=== PATIENT | female | born 1955 | race Caucasian/White ===

== ENCOUNTER 2017-11-13 13:12 | Observation (INO) | payer OTHER ==
[2017-11-13 13:37] LABS: #Basophils 0.1 thou/uL (0.0-0.2); #Eosinphils 0.1 thou/uL (0.0-0.7); #Monocytes 0.4 thou/uL (0.11-0.59); #Neutrophils 3.3 thou/uL (1.40-6.50); %Basophils 1.7 % (0.0-1.0); %Eosinophils 1.8 % (0.0-10.0); %Lymphocytes 34.4 % (21.0-51.0); %Monocytes 6.8 % (0.0-10.0); %Neutrophils 55.3 % (42.0-75.0); Hemoglobin 15.5 g/dL (12.0-16.0); Mean Corpuscular HGB CONC 33.3 g/dL (32.0-36.0); Mean Corpuscular Hemoglobin 31.8 pg (27.0-31.0); Mean Corpuscular Volume 95.5 fl (81.0-99.0); Mean Platelet Volume 8.3 fL (7.4-10.4); Platelet Count 191 thou/uL (130-400); RBC Distribution Width 12.3 % (11.5-14.5); Red Blood Cell (RBC) Count 4.87 mill/uL (4.20-5.40); White Blood Cell (WBC) Count 5.9 thou/uL (4.8-10.8)
[2017-11-13 13:45] LABS: PTT 37.3 SEC (22.9-36.1); Prothrombin Time 13.1 SEC (12.0-14.7)
[2017-11-13 13:52] LABS: ALT (SGPT) 14 U/L (8-55); AST (SGOT) 19 U/L (5-34); Albumin 4.2 g/dL (3.4-4.8); Alkaline Phosphatase 69 U/L (40-150); Anion Gap 11 mmol/L (10-20); BUN (Urea Nitrogen) 10 mg/dL (9.8-20.1); Bilirubin, Total 0.4 mg/dL (0.2-1.2); Calc. Creatinine Clearance 0 mL/min (70-130); Calcium 9.4 mg/dL (7.8-10.44); Carbon Dioxide 26 mmol/L (23-31); Chloride 106 mmol/L (98-107); Estimated GFR-MDRD 83; Globulin 3.1 g/dL (2.4-3.5); Glucose 97 mg/dL (80-115); Potassium 3.9 mmol/L (3.5-5.1); Protein, Total 7.3 g/dL (6.0-8.3); Sodium 139 mmol/L (136-145)
[2017-11-13 13:57] LABS: CKMB 0.5 ng/mL (0-6.6); Troponin I Less than 0.010 ng/mL (< 0.028)
--- NOTE | 2017-11-13 14:14 | CT ---
CT BRAIN: HISTORY: Altered mental status. Possible stroke. A 62-year-old female. COMPARISON: 11/13/2003 TECHNIQUE: Noncontrast enhanced CT images of the brain are obtained. FINDINGS: The brain is unremarkable. No evidence of intracranial masses, hemorrhages, strokes, or contusions s een. IMPRESSION: Normal CT brain. POS: BOB
[2017-11-13 14:32] LABS: Acetaminophen Less than 6.0 mcg/mL (10.0-30.0); Alcohol Less than 10 mg/dL (Less than 10); Salicylate Less than 8.0 mg/dL (15.0-30.0)
[2017-11-13 14:52] LABS: Bilirubin Negative (Negative); Blood, Urine Negative (Negative); Clarity CLEAR (Clear); Glucose, Urine (Dipstick) Negative (Negative); Leukocyte Negative (Negative); Nitrite Negative (Negative); Protein, Urine (Dipstick) Negative (Neg-Trace); Specific Gravity, Urine 1.007 (1.002-1.036); Urobilinogen 0.2 mg/dL (0.2-1.0)
[2017-11-13] MEDS ORDERED: Acetaminophen 325 MG TAB ONE (16:52)
[2017-11-13] MEDS ORDERED: Aspirin 325 MG TAB ONE (16:52)
[2017-11-13] MEDS ORDERED: Calcium Carbonate 500 MG ChewTAB PO PRN (18:16)
[2017-11-13] MEDS ORDERED: Ondansetron ODT 4 MG TAB PO PRN (18:16)
[2017-11-13] MEDS ORDERED: Mag-Al 1200 mg/1200 mg/30 ML UDCUP PO PRN (18:16)
[2017-11-13] MEDS ORDERED: Ondansetron HCl/PF 4 MG/2 ML Vial IVP PRN (18:16)
[2017-11-13] MEDS ORDERED: hydrALAZINE 20 MG/ML VIAL SLOW IVP PRN (18:16)
[2017-11-13] MEDS ORDERED: Senokot 8.6 MG TAB PO PRN (18:16)
[2017-11-13 18:31] VITALS: BMI 29.0
[2017-11-13 19:37] LABS: Troponin I Less than 0.010 ng/mL (< 0.028)
[2017-11-13] MEDS ORDERED: Atorvastatin Calcium 10 MG TAB PO SCH (21:00)
[2017-11-13] MEDS: Sodium Chloride 0.9% 1,000 ML IV SCH (21:14)
[2017-11-13] MEDS ORDERED: Lorazepam 0.5 MG TAB PO PRN ×2 (21:44→21:52)
[2017-11-13] MEDS ORDERED: Escitalopram Oxalate 20 mg Tablet PO SCH (21:45)
--- NOTE | 2017-11-13 21:59 | PDOC.PN ---
- Subjective Encounter Start Date: 11/13/17 Encounter Start Time: 21:58 Patient seen and examined. - Objective Resuscitation Status: Resuscitation Status FULL:Full Resuscitation MAR Reviewed: Yes Vital Signs & Weight: Vital Signs (12 hours) Temp Pulse Resp BP Pulse Ox 11/13/17 20:49 98 11/13/17 19:55 98.3 F 74 16 152/75 H 100 11/13/17 18:25 98.4 F 52 L 18 144/77 H 97 Weight Weight 159 lb Result Diagrams: 11/13/17 13:16 11/13/17 13:16 Radiology Reviewed by me: Yes (CT brain - negative) EKG Reviewed by me: Yes (Sinus bradycardia) Phys Exam - Physical Examination Constitutional: NAD HEENT: PERRLA, moist MMs, sclera anicteric Neck: no nodes, no JVD, supple, full ROM Respiratory: no wheezing, no rales, no rhonchi, clear to auscultation bilateral Cardiovascular: RRR, no significant murmur, no rub no heaves/pulsations Gastrointestinal: soft, non-tender, no distention, positive bowel sounds Musculoskeletal: no edema, pulses present Neurological: non-focal, normal sensation, moves all 4 limbs Normal tone, CN 2-12 were normal on exam Psychiatric: normal affect, A&O x 3 Skin: no rash Dx/Plan - Plan DVT proph w/SCDs * Dictated Review of Systems - Review of Systems Constitutional: negative: fever, chills, sweats, weakness, malaise, other Eyes: negative: Pain, Vision Change, Conjunctivae Inflammation, Eyelid Inflammation, Redness, Other ENT: negative: Ear Pain, Ear Discharge, Nose Pain, Nose Discharge, Nose Congestion, Mouth Pain, Mouth Swelling, Throat Pain, Throat Swelling, Other Respiratory: negative: Cough, Dry, Shortness of Breath, Hemoptysis, SOB with Excertion, Pleuritic Pain, Sputum, Wheezing Cardiovascular: negative: chest pain, palpitations, orthopnea, paroxysmal nocturnal dyspnea, edema, light headedness, other Gastrointestinal: negative: Nausea, Vomiting, Abdominal Pain, Diarrhea, Constipation, Melena, Hematochezia, Other Genitourinary: negative: Dysuria, Frequency, Incontinence, Hematuria, Retention , Other Musculoskeletal: negative: Neck Pain, Shoulder Pain, Arm Pain, Back Pain, Hand Pain, Leg Pain, Foot Pain, Other Skin: negative: Rash, Lesions, Jasson, Bruising, Other Neurological: Change in Speech, Confusion. negative: Weakness, Numbness, Incoordination, Seizures, Other - Medications/Allergies Allergies/Adverse Reactions: Allergies Allergy/AdvReac Type Severity Reaction Status Date / Time Pnpzhed-Wvg-Aow Reductase Allergy Verified 11/13/17 21:46 Inhibitor Medications: Current Medications Acetaminophen (Tylenol) 650 mg PO Q4H PRN PRN Reason: Headache/Fever or Pain Al Hydroxide/Mg Hydroxide (Maalox) 30 ml PO Q6H PRN PRN Reason: Heartburn or Indigestion Aspirin (Ecotrin) 325 mg PO DAILY REPLACED BY [facility] Calcium Carbonate (Tums) 1,000 mg PO Q4H PRN PRN Reason: Heartburn or Indigestion Docusate Sodium (Colace) 100 mg PO BID REPLACED BY [facility] Enoxaparin Sodium (Lovenox) 40 mg SC 0900 REPLACED BY [facility] Escitalopram Oxalate (Lexapro) 20 mg PO HS REPLACED BY [facility] Escitalopram Oxalate (Lexapro) 20 mg PO NOW REPLACED BY [facility] Stop: 11/13/17 22:30 Famotidine (Pepcid) 20 mg PO BID REPLACED BY [facility] Hydralazine HCl (Apresoline) 10 mg SLOW IVP Q4H PRN PRN Reason: BP > 220/110 Sodium Chloride (Normal Saline 0.9%) 1,000 mls @ 70 mls/hr IV .[id number] REPLACED BY [facility] Last Admin: 11/13/17 21:14 Dose: 1,000 mls Lorazepam (Ativan) 1 mg PO ASDIR REPLACED BY [facility] Lorazepam (Ativan) 0.5 mg PO Q4H PRN PRN Reason: Anxiety Pantoprazole Sodium (Protonix) 40 mg PO NOW REPLACED BY [facility] Stop: 11/13/17 23:00 Senna (Senokot) 2 tab PO HSPRN PRN PRN Reason: Constipation
[2017-11-13] MEDS ORDERED: Lorazepam 1 MG TAB PO SCH (22:00)
--- NOTE | 2017-11-13 22:09 | HP ---
DATE OF ADMISSION: 11/13/2017 PRIMARY CARE PHYSICIAN: [facility]. The patient sees Dr. Garcia. CHIEF COMPLAINT: Confusion with memory problems, lasting for a total of 2 hours this morning. HISTORY OF PRESENT ILLNESS: The patient is a 62-year-old female with anxiety and hyperlipidemia, who presented to the emergency room with above complaints. History obtained from the patient. No famil y at the bedside. The patient was last seen normal around 10:00 a.m. Between 10-12 a.m., the patient had confusion and memory problems. She was unable to recognize her 's medications. She also did not remember making breakfast for her . Her daughter also noticed that her speech was somewhat slurry per patient report. She also had some headache that was throbbing in nature, 5/10, without any aggravati ng or relieving factor. No photophobia, phonophobia, double vision, blurring of vision, weakness, nu mbness of any of her extremities reported. She denies any chest pain, palpitations, syncope or light headedness. In the emergency room, her initial vital signs showed temperature 98.0, respirations 18, pulse of 59, blood pressure 133/88 with O2 saturation 100% on room air. A CT scan of the brain was negative for infiltrate. Her EKG showed sinus rhythm without significant ST-T wave changes. She received aspirin in the emergency room. PAST MEDICAL HISTORY: 1. Hyperlipidemia. 2. Anxiety. PAST SURGICAL HISTORY: 1. Gastric sleeve. 2. Hysterectomy. 3. Tonsillectomy. ALLERGIES: The patient is allergic to STATINS. SOCIAL HISTORY: The patient currently lives at home with her family. No smoking, alcohol or drug us e. FAMILY HISTORY: Mother with CVA and sarcoidosis. Multiple cancer runs in her family. REVIEW OF SYSTEMS: Please refer to my progress note. PHYSICAL EXAMINATION: Please refer to my progress note. LABORATORY FINDINGS: Please refer to my progress note. IMPRESSION AND PLAN: 1. Confusion with memory problems along with headache lasting for 2 hours. Her symptoms are suspici ous for transient ischemic attack. We will get stroke workup including MRI of the brain and echocard iogram. Vitamin B12 and folic acid will also be checked due to history of gastric sleeve. We will c ontinue aspirin. The patient is claustrophobic and will require Ativan prior to MRI. We will consul t Neurology based on the MRI. 2. Hyperlipidemia. The patient is allergic to STATINS. We will check fasting lipid profile in a.m. 3. Anxiety. We will continue Lexapro. 4. Gastroesophageal reflux disease. We will continue proton pump inhibitors. Disposition based on the MRI report. Plan of care was discussed with the patient in detail. She stated understanding.
[2017-11-13] MEDS: Acetaminophen 325 MG TAB PO PRN (22:53)
[2017-11-13] MEDS: Docusate 100 MG CAP PO SCH (22:53)
[2017-11-13] MEDS: Famotidine 20 MG TAB PO SCH (22:54)
[2017-11-14 06:11] LABS: Cardiac Risk 4.4 (Less than 4.5)
[2017-11-14 06:12] LABS: Troponin I Less than 0.010 ng/mL (< 0.028)
[2017-11-14 06:47] LABS: Folate (Folic Acid) 7.1 ng/mL (7.0-31.4)
[2017-11-14 07:48] LABS: Bilirubin Negative (Negative); Blood, Urine Negative (Negative); Clarity CLEAR (Clear); Glucose, Urine (Dipstick) Negative (Negative); Leukocyte Negative (Negative); Nitrite Negative (Negative); Protein, Urine (Dipstick) Negative (Neg-Trace); Specific Gravity, Urine 1.015 (1.002-1.036); Urobilinogen 0.2 mg/dL (0.2-1.0); pH, Urine 6.5 (5.0-9.0)
[2017-11-14 07:51] LABS: Bacteria/HPF None Seen HPF (None Seen); Hyaline Casts/LPF 0-3 HYALINE CAST LPF (0-3 Hyaline); RBC/HPF 0-3 HPF (0-3); Squamous Epithelial None Seen HPF (0-3); WBC/HPF 0-3 HPF (0-3)
[2017-11-14] MEDS: Acetaminophen 325 MG TAB PO PRN (08:01)
[2017-11-14] MEDS: Docusate 100 MG CAP PO SCH (08:01)
[2017-11-14] MEDS: Famotidine 20 MG TAB PO SCH (08:01)
[2017-11-14] MEDS: Sodium Chloride 0.9% 1,000 ML IV SCH (08:04)
[2017-11-14] MEDS ORDERED: Enoxaparin Sodium 40 MG/0.4 ML SYRINGE SC SCH ×2 (09:00→21:00)
[2017-11-14] MEDS ORDERED: Aspirin 325 mg Enteric Coated Tablet PO SCH (09:00)
--- NOTE | 2017-11-14 10:28 | MRI ---
MRI BRAIN WITHOUT CONTRAST: HISTORY: Altered mental status. COMPARISON: CT brain from 11/13/2017. TECHNIQUE: Multiplanar, multisequence MR images were obtained of the brain without contrast. FINDINGS: There are subtle scattered foci of high FLAIR signal in the subcortical and periventricular white mat ter, likely secondary to small vessel ischemic disease. No restricted diffusion is seen to suggest a n acute infarction. There is no evidence of hydrocephalus, intracranial hemorrhage, or extraaxial fl uid collections. The expected flow voids are present. The corpus callosum, pituitary, and craniocervical junction are unremarkable. The calvarium and overlying soft tissues are unremarkable. The visualized paranasal sinuses and mast oid air cells are well aerated. IMPRESSION: No evidence of acute intracranial abnormality. POS: BOBH
[2017-11-14 15:49] VITALS: BP 123/82; TEMP 98.4
--- NOTE | 2017-11-14 17:29 | DIS ---
DATE OF DISCHARGE: 11/14/2017 DISCHARGE DISPOSITION: Home. FOLLOWUP: Follow up with primary care physician, Dr. Garcia at [place]. Follow up with Cardio logy, Dr. Mayes, and Neurology, Dr. Laura Blank as outpatient. INPATIENT CONSULTANTS: None. The patient was seen on the day of discharge, denies any new complaints, no chest pain, shortness of breath or palpitations. BRIEF HOSPITAL COURSE: The patient is a 62-year-old female with hyperlipidemia and anxiety who prese nted to the hospital with confusion with memory problems, lasting for approximately 2 hours. Please refer to the history and physical dated 11/13/2017 for further details. The patient was admitted to the hospital with a diagnosis of suspected TIA. A CT scan of the brain was negative. Serial troponi ns were negative as well. MRI of the brain was negative for acute CVA. It showed small vessel ische jasmeet disease. She has been started on aspirin. Please note that patient is allergic to STATINS. Fas ting lipid profile showed cholesterol of 215 with triglyceride 117, LDL 143 with HDL 49. She has bee n also started on vitamin B12 supplementation for low normal vitamin B12 level. Plan of care was dis cussed with the patient in detail. They stated understanding. FINAL DIAGNOSES: 1. Transient ischemic attack. MRI negative. Echocardiogram could not be done due to technical reas on. Patient will follow up with Dr. Mayes as outpatient. 2. PVCs. The patient had a few PVCs on the monitoring and evaluation advisor. Beta blockers were not started due t o blood pressure in the low normal range. The patient will follow up with Dr. Mayes as outpatient. 3. Hyperlipidemia. Please note that patient is allergic to STATINS. 4. Anxiety. 5. Gastroesophageal reflux disease. 6. Chronic kidney disease, stage 2. Plan of care was discussed with the patient in detail. She stated understanding.
[2017-11-14] MEDS ORDERED: Escitalopram Oxalate 20 mg Tablet PO SCH (21:00)
--- NOTE | 2017-11-14 22:04 | CON ---
DATE OF CONSULTATION: 11/14/2017 CONSULTING PHYSICIAN: Hospitalist Service. IMPRESSION: Transient global amnesia versus subclinical seizure versus confusional migraine aura. PLAN: The patient can be discharged home for outpatient monitoring. Ms. Bui is a 62-year-old female with a past history of hyperlipidemia. She was at home when she n oticed that after talking to someone on the phone, she could not recall anything she was told. She t hen went and looked in the cabinet to deal with her 's medications and everything seemed quite foreign to her. She called her friend who noted that she did not seem to be acting appropriately. She was brought into the emergency room for evaluation. She had some short-term memory testing, whic h she failed. She could not recall her birthday. Her symptoms seemed to last at least 2 hours and s ubsequently resolved. There were no other associated symptoms such as weakness, numbness, slurred sp eech, headache, nausea, vomiting, or vertigo. She has never had anything like this in the past. Her MRI of the brain was normal. PAST MEDICAL HISTORY: Hyperlipidemia. ALLERGIES: None. SOCIAL HISTORY: Unremarkable. FAMILY HISTORY: Noncontributory. REVIEW OF SYSTEMS: Otherwise, negative for any past transient neurologic events. She does complain that her memory is not as good as it used to be. PHYSICAL EXAMINATION: GENERAL: She is a healthy appearing middle-aged woman, in no distress. VITAL SIGNS: Stable. She is afebrile. HEENT: Pupils equal and reactive. Conjunctivae are clear. Oropharynx is clear. NECK: Supple. EXTREMITIES: No cyanosis. NEUROLOGIC: She is alert and appropriate. Her speech is fluent and clear. Exam is nonfocal. Her g ait is steady. No abnormal movements were seen. SUMMARY: A 62-year-old with transient amnesia, which appears to have cleared. It lasted long enough that if it were ischemic it should have shown up on MRI. There is no harm in discharging her on a b nury aspirin, but I suspect this will probably never happen again.
[2017-11-15] MEDS ORDERED: Cyanocobalamin (Vitamin B-12) 1,000 MCG TAB PO SCH (09:00)
== END 2017-11-14 17:45 | disposition home or self-care (01) ==
LOC: ERS 13:12 → 2SE 16:48
PROVIDERS: ADMIT Internal Medicine; ATTEND Internal Medicine
DX: G45.9 Transient cerebral ischemic attack, unspecified (principal); E78.5 Hyperlipidemia, unspecified; F41.9 Anxiety disorder, unspecified; K21.9 Gastro-esophageal reflux disease without esophagitis; N18.2 Chronic kidney disease, stage 2 (mild); Z79.899 Other long term (current) drug therapy; Z88.8 Allergy status to other drugs, medicaments and biological substances
CPT/HCPCS: 36415; 36416; 70450; 70551; 80053; 80061; 80307; 81001; 81003; 82140; 82553; 82607; 82746; 84443; 84484; 85025; 85610; 85730; 93005; 96360; 96361; G0378

== ENCOUNTER 2017-12-26 09:29 | Outpatient (CLI) | payer OTHER | END 2017-12-26 09:30 | disposition home or self-care (01) | LOC: EEG 09:29 | PROVIDERS: ATTEND Psychiatry & Neurology Neurology | DX: G45.4 Transient global amnesia (principal) | CPT/HCPCS: 95816 ==